=== PATIENT | male | born 1990 | race Caucasian/White ===

== ENCOUNTER 2017-01-06 17:11 | Emergency (ER) | payer MEDICAID, OTHER ==
[~2017-01-06] VITALS: Ht 170.2 cm; Wt 111.1 kg
[2017-01-06 17:28] VITALS: BP 157/93
--- NOTE | 2017-01-06 18:04 | NUR ---
PATIENT AMBULATED TO BED 4 AT THIS TIME.
--- NOTE | 2017-01-06 18:06 | NUR ---
DR MANCILLA EVALUATING THE PT AT BEDSIDE
[2017-01-06] MEDS ORDERED: IBUPROFEN 800 MG TAB PO ONE (18:10)
[2017-01-06] MEDS ORDERED: METHOCARBAMOL 500 MG TAB PO SCH (18:10)
--- NOTE | 2017-01-06 18:15 | NUR ---
PT PRESENTS TO ER W/C/O LBP X3 DAYS. PT DENIES ANY MEDICAL HX. DENIES N/V/D; SKIN IS PINK/WARM/DRY; AAOX4 WITH EVEN AND STEADY GAIT; LUNGS CLEAR BL; HR EVEN AND REGULAR; PT DENIES ANY FEVER, CP, SOB, OR COUGH AT THIS TIME; PATIENT STATES LOW BACK PAIN OF 7/10 AT THIS TIME; VSS; PATIENT POSITIONED FOR COMFORT; HOB ELEVATED; BEDRAILS UP X2; BED DOWN. ER MD MADE AWARE OF PT STATUS.
[2017-01-06 18:56] VITALS: BP 148/86
--- NOTE | 2017-01-06 18:56 | NUR ---
Patient discharged with v/s stable. Written and verbal after care instructions given and explained. Patient alert, oriented and verbalized understanding of instructions. Ambulatory with steady gait. All questions addressed prior to discharge. ID band removed. Patient advised to follow up with PMD. Rx of MOTRIN,ROBAXIN AND LIDODERM given. Patient educated on indication of medication including possible reaction and side effects. Opportunity to ask questions provided and answered.
== END 2017-01-06 18:56 | disposition home or self-care (01) ==
LOC: MED 17:11
DX: M54.5 Low back pain (principal)
CPT/HCPCS: 99283

== ENCOUNTER 2018-06-22 14:57 | Emergency (ER) | payer MEDICAID ==
[~2018-06-22] VITALS: Ht 175.3 cm; Wt 122.1 kg
[2018-06-22 15:03] VITALS: BP 133/76
[2018-06-22] MEDS ORDERED: NACL 0.9% 1,000 ML IV SCH (15:16)
[2018-06-22] MEDS ORDERED: ACETAMINOPHEN EXTRA STRENGTH 500 MG TAB PO ONE (15:20)
[2018-06-22] MEDS ORDERED: KETOROLAC 30 MG/ML VIAL IVP ONE (15:20)
[2018-06-22] MEDS ORDERED: ONDANSETRON 4 MG/2 ML VIAL IVP ONE (15:20)
[2018-06-22 15:42] LABS: BASOPHILS % (AUTO) 0.6 % (0.0-2.0); HEMATOCRIT 44.4 % (36-52); HEMOGLOBIN 14.8 g/dL (12.0-18.0); LYMPHOCYTES # (AUTO) 1.2 K/uL (2.0-11.5); LYMPHOCYTES % (AUTO) 20.2 % (20.5-51.1); MEAN CORPUSCULAR HEMOGLOBIN 29 pg (27-31); MEAN CORPUSCULAR HGB CONC 33 g/dL (33-37); MONOCYTES # (AUTO) 0.7 K/uL (0.8-1.0); MONOCYTES % (AUTO) 11.5 % (1.7-9.3); NEUTROPHILS % (AUTO) 67.7 % (42.2-75.2); PLATELET COUNT (AUTO) 173 K/uL (140-450); RED CELL DISTRIBUTION WIDTH 12.9 % (11.6-13.7); WHITE BLOOD COUNT (AUTO) 5.9 K/uL (4.8-10.8)
[2018-06-22 15:57] LABS: ALBUMIN 3.9 g/dL (3.4-5.0); ANION GAP 16.4 (8-16); CARBON DIOXIDE 26.3 mmol/L (21-32); CREATININE 1.1 mg/dL (0.7-1.3); POTASSIUM 3.7 mmol/L (3.5-5.1); TOTAL BILIRUBIN 1.2 mg/dL (0.0-1.0)
[2018-06-22 16:33] LABS: APPEARANCE,URINE CLEAR (CLEAR); BILIRUBIN,URINE 1+ (NEGATIVE); BLOOD, URINE NEGATIVE (NEGATIVE); LEUKOCYTE ESTERASE ,URINE NEGATIVE (NEGATIVE); NITRITE, URINE NEGATIVE (NEGATIVE); UGLUCOSE NEGATIVE (NEGATIVE)
[2018-06-22 16:37] LABS: COLOR,URINE ORANGE (YELLOW)
[2018-06-22 16:39] LABS: RBC,URINE 0-5 (RARE) /HPF (0-5); WBC,URINE 0-5 (RARE) /HPF (0-5)
[2018-06-22 16:40] VITALS: BP 120/78
== END 2018-06-22 16:40 | disposition home or self-care (01) ==
LOC: MED 14:57
DX: R11.2 Nausea with vomiting, unspecified (principal); R19.7 Diarrhea, unspecified; R50.9 Fever, unspecified
CPT/HCPCS: 36415; 80053; 81001; 82150; 83690; 85025; 96361; 96374; 96375; 99283; J1885; J2405; J7030

== ENCOUNTER 2021-06-12 12:46 | Emergency (ER) | payer MEDICAID ==
[~2021-06-12] VITALS: Ht 170.2 cm; Wt 119.7 kg
--- NOTE | 2021-06-12 13:02 | NUR ---
CALLED ONCE TO TRIAGE, NO ANSWER
[2021-06-12 13:11] VITALS: BP 145/96
--- NOTE | 2021-06-12 13:18 | NUR ---
PT TRIAGED AND SENT TO [facility]
[2021-06-12] MEDS ORDERED: CEPH-588 PO (13:23)
[2021-06-12] MEDS ORDERED: NAPR-54 PO (13:23)
[2021-06-12] MEDS ORDERED: BACTO TP (13:23)
--- NOTE | 2021-06-12 13:30 | NUR ---
NO NURSING INTERVENTIONS PROVIDED
[2021-06-12 13:31] VITALS: BP 145/96
--- NOTE | 2021-06-12 13:31 | NUR ---
Patient discharged with v/s stable. Written and verbal after care instructions ABOUT FOLLICULITIS given and explained. Patient alert, oriented and verbalized understanding of instructions. Ambulatory with steady gait. All questions addressed prior to discharge. ID band removed. Patient advised to follow up with PMD. Rx of BATROBAN, KEFLEX AND NAPROSYN given. Patient educated on indication of medication including possible reaction and side effects. Opportunity to ask questions provided and answered.
== END 2021-06-12 13:31 | disposition home or self-care (01) ==
LOC: MED 12:46
DX: L73.9 Follicular disorder, unspecified (principal)
CPT/HCPCS: 99283